=== PATIENT | female | born 1990 | race Caucasian/White ===

== ENCOUNTER 2019-12-19 16:59 | Emergency (ER) | payer SELFPAY ==
[~2019-12-19] VITALS: Ht 160 cm; Wt 56.7 kg
[2019-12-19] MEDS ORDERED: PREDNISONE20 M1 PO (20:09)
== END 2019-12-19 20:20 | disposition home or self-care (01) ==
LOC: ED 16:59
DX: H20.9 Unspecified iridocyclitis (principal)